=== PATIENT | female | born 1970 | race Caucasian/White ===

== ENCOUNTER → 2016-07-26 12:19 | Outpatient (CLI) | payer MEDICAID ==
[2016-01-07 09:24] VITALS: BMI 30.1
[~2016-07-26 12:19] MED LIST: ACCURETIC 20-251 TAB PO; CYCLOBENZAPRINE10 MG PO; DILAUDID2 MG PO; IBUPROFEN800 MG PO; OMEPRAZOLE40 MG PO; VICTOZA0.6 MG/0.1 SQ
== END | disposition home or self-care (01) ==
LOC: D.MRI 12:19
DX: M25.572 Pain in left ankle and joints of left foot (principal)

== ENCOUNTER → 2016-08-16 14:24 | Outpatient (CLI) | payer MEDICAID ==
[2016-01-07 09:24] VITALS: BMI 30.1
== END | disposition home or self-care (01) ==
LOC: D.MRI 14:24
DX: M75.41 Impingement syndrome of right shoulder (principal)

== ENCOUNTER → 2016-10-07 10:41 | Outpatient (CLI) | payer MEDICAID ==
[2016-01-07 09:24] VITALS: BMI 30.1
== END | disposition home or self-care (01) ==
LOC: D.CT 10:41
DX: M54.12 Radiculopathy, cervical region (principal); R59.1 Generalized enlarged lymph nodes

== ENCOUNTER 2016-11-17 13:10 | Outpatient (CLI) | payer MEDICAID ==
[2016-01-07 09:24] VITALS: BMI 30.1
== END 2016-11-17 16:39 ==
LOC: D.MAMMO 13:10
DX: R59.1 Generalized enlarged lymph nodes (principal)

== ENCOUNTER → 2017-01-11 11:05 | Outpatient (CLI) | payer MEDICAID ==
[2016-01-07 09:24] VITALS: BMI 30.1
== END | disposition home or self-care (01) ==
LOC: D.MRI 11:05
DX: M54.12 Radiculopathy, cervical region (principal)

== ENCOUNTER → 2017-03-24 08:00 | Outpatient (CLI) | payer MEDICAID ==
[2016-01-07 09:24] VITALS: BMI 30.1
--- NOTE | 2017-03-25 06:41 | EMG ---
PATIENT:TERE YANES DATE OF SERVICE: 03/24/17 MEDICAL RECORD: [id number] DATE OF : 70 LOCATION: [facility] ADMISSION DATE: REFERRING PHYSICIAN: DRISS SLATER MD INTERPRETING PHYSICIAN: ZARI LOYD MD DATE OF SERVICE: 03/24/[address] Sltaer as an outpatient. ELECTROMYOGRAPHIC DATA: Electromyographic examination is limited to both upper extremities. In the right upper extremity, right median motor stimulation elicits a compound motor action potential with a distal latency of 5.4 milliseconds, peak amplitude of 4 millivolts, and calculated conduction velocity of 55 meters per second. Right ulnar motor stimulation elicits a compound motor action potential with a distal latency of 3.1 milliseconds, peak amplitude of 10 millivolts and calculated conduction velocity of 61 meters per second. Right ulnar motor stimulation across the elbow fails to elicit evidence of conduction block at this level. Antidromic right median sensory stimulation elicits a response with a distal latency of 4.9 milliseconds, amplitude of 12 microvolts and calculated conduction velocity of 48 meters per second. Antidromic right ulnar sensory stimulation elicits a response with a distal latency of 3.8 milliseconds, amplitude of 6 microvolts and calculated conduction velocity of 66 meters per second. The right median F wave has a latency of 31 milliseconds. In the left upper extremity, left median motor stimulation elicits a compound motor action potential with a distal latency of 3.7 milliseconds, peak amplitude of 7 millivolts, and calculated conduction velocity of 50 meters per second. Left ulnar motor stimulation elicits a compound motor action potential with a distal latency of 3.1 milliseconds, peak amplitude of 10 millivolts and calculated conduction velocity of 60 meters per second. Left ulnar motor stimulation across the elbow fails to elicit evidence of conduction block at this level. Antidromic left median sensory stimulation elicits a response with a distal latency of 4.7 milliseconds, amplitude of 15 microvolts and calculated conduction velocity of 48 meters per second. Antidromic left ulnar sensory stimulation elicits a response with a distal latency of 4.0 milliseconds, amplitude of 9 microvolts and calculated conduction velocity of 58 meters per second. The left median F wave has a latency of 28 milliseconds. Needle electrode examination is limited to both upper extremities as well. Muscles interrogated include the abductor pollicis brevis, first dorsal interosseous, abductor digiti minimi, pronator teres, biceps brachii, triceps and deltoid. There is no abnormality of insertional activity and no abnormal spontaneous activity is seen in all muscles interrogated. Motor unit potential morphology and the pattern of motor unit potential firing and recruitment is normal in all muscles sampled. 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 There is no electrical evidence of a superimposed cervical radiculopathy or other lesion of the lower motor neuron in the upper extremities at this time. There is no ELECTROMYGRAM/NERVE CONDUCTION [id number] TERE YANES evidence of active denervation. TRANSINT:[id number] Voice Confirmation ID: [id number] DOCUMENT ID: [id number] ZARI LOYD MD at 0641 CC: [id number] DICTATION DATE: 03/24/17 0858 MOISTURE METER READER: 03/24/17 1215 DEP CLI 03/24/17 [id number] [place] [address]
== END | disposition home or self-care (01) ==
LOC: D.CN 08:00
DX: M54.12 Radiculopathy, cervical region (principal); M79.2 Neuralgia and neuritis, unspecified

== ENCOUNTER → 2017-05-01 12:47 | Outpatient (CLI) | payer MEDICAID ==
[2016-01-07 09:24] VITALS: BMI 30.1
== END | disposition home or self-care (01) ==
LOC: D.RT 12:47
DX: J44.9 Chronic obstructive pulmonary disease, unspecified (principal)

== ENCOUNTER 2017-05-13 14:22 | Emergency (ER) | payer MEDICAID ==
[2016-01-07 09:24] VITALS: BMI 30.1
== END 2017-05-13 16:24 | disposition home or self-care (01) ==
LOC: D.ER 14:22
DX: R51 Headache (principal)

== ENCOUNTER 2020-02-17 15:00 | Outpatient (CLI) | payer MEDICAID ==
[2016-01-07 09:24] VITALS: BMI 30.1
== END 2020-02-17 16:00 | disposition home or self-care (01) ==
LOC: D.MAMMO 15:00
PROVIDERS: ATTEND Family Medicine
DX: N63.11 Unspecified lump in the right breast, upper outer quadrant (principal)